=== PATIENT | female | born 1995 | race African-American/Black ===

== ENCOUNTER 2018-01-17 16:48 | Emergency (ER) | payer OTHER ==
[~2018-01-17] VITALS: Ht 162.6 cm; Wt 74.8 kg
[2018-01-17] MEDS ORDERED: KETOROLAC TROMETHAMINE 30 MG INJ ONE (17:36)
[2018-01-17] MEDS ORDERED: MORPHINE SULFATE 4 MG/1 ML DISP.SYRIN ONE (17:36)
[2018-01-17] MEDS ORDERED: ONDANSETRON 4 MG/2 ML VIAL ONE (17:36)
[2018-01-17] MEDS ORDERED: KETOROLAC TROMETHAMINE 30 MG INJ IVP ONE (17:45)
[2018-01-17] MEDS ORDERED: MORPHINE SULFATE 2 MG/1 ML DISP.SYRIN IV ONE (17:45)
[2018-01-17] MEDS ORDERED: ONDANSETRON 4 MG/2 ML VIAL IV ONE (17:45)
[2018-01-17] MEDS ORDERED: IV NORMAL SALINE 1000 ML BAG IV ONE (17:45)
[2018-01-17 17:54] LABS: CARBON DIOXIDE 22 mmol/L (21-32); CHLORIDE 101 mmol/L (98-107); GLUCOSE 99 mg/dL (74-106); POTASSIUM 3.3 mmol/L (3.5-5.1); UREA NITROGEN, BLOOD 4 mg/dL (7-18)
[2018-01-17 17:56] LABS: BASOPHILS % (AUTO) 0.3 % (0.0-2.0); EOSINOPHILS # (AUTO) 0.1 K/uL (0.0-0.7); EOSINOPHILS % (AUTO) 0.4 % (0.0-7.0); HEMATOCRIT 38.5 % (31.2-41.9); HEMOGLOBIN 12.9 g/dL (10.9-14.3); LYMPHOCYTES # (AUTO) 1.9 K/uL (20.0-40.0); LYMPHOCYTES % (AUTO) 15.4 % (20.5-74.5); MEAN CORPUSCULAR HEMOGLOBIN 28.1 uug (24.7-32.8); MEAN CORPUSCULAR HGB CONC 33 g/dL (32.3-35.6); MEAN CORPUSCULAR VOLUME 83.9 fL (75.5-95.3); MONOCYTES # (AUTO) 0.5 K/uL (2.0-10.0); MONOCYTES % (AUTO) 3.8 % (0-11); NEUTROPHILS # (AUTO) 10.1 K/uL (1.8-8.9); NEUTROPHILS % (AUTO) 80.1 % (31.5-64.5); PLATELET COUNT (AUTO) 381 K/uL (179-408); RED BLOOD CELL COUNT(AUTO) 4.58 MIL/uL (3.63-4.92); WHITE BLOOD COUNT (AUTO) 12.6 K/uL (3.8-11.8)
[2018-01-17 18:01] LABS: ALANINE AMINOTRANSFERASE 45 U/L (14-59); ALKALINE PHOSPHATASE 99 U/L (50-136); ASPARTATE AMINOTRANSFERASE 33 U/L (15-37); BILIRUBIN,DIRECT < 0.1 mg/dL (0.0-0.2); BILIRUBIN,TOTAL 0.3 mg/dL (0.2-1.0); LIPASE 85 U/L (73-393)
--- NOTE | 2018-01-17 20:22 | NUR ---
Pt provided urine sample, sent to lab. Pt out of ER for CT.
[2018-01-17 20:28] LABS: *BILIRUBIN,URIN NEGATIVE (NEGATIVE); *BLOOD, URINE 2+ (NEGATIVE); *COLOR,URINE YELLOW (YELLOW); *KETONES,URINE NEGATIVE (NEGATIVE); *PROTEIN,URINE NEGATIVE (NEGATIVE); *UROBILINOGEN,URINE 0.2 E.U./dl (NORMAL); LEUKOCYTE ESTERASE ,URINE NEGATIVE (NEGATIVE); NITRITE, URINE NEGATIVE (NEGATIVE); PH,URINE 8.5 (5.0-8.0); UGLUCOSE NEGATIVE (NEGATIVE)
[2018-01-17 20:30] LABS: *URINE HCG, QUAL NEGATIVE (NEGATIVE)
[2018-01-17 20:33] LABS: *CLARITY,URINE SLIGHTLY HAZY (CLEAR)
[2018-01-17 20:34] LABS: BACTERIA,URINE FEW /HPF (NONE SEEN); MUCUS,URINE MODERATE /LPF (0-FEW); SQUAMOUS EPITHELIAL CELL,UR MODERATE /HPF (NONE SEEN); WBC,URINE 0-3 /HPF (0-3)
--- NOTE | 2018-01-17 20:42 | NUR ---
Pt back to ER from CT.
--- NOTE | 2018-01-17 21:15 | NUR ---
Patient discharged to home in stable conditon. Written and verbal after care instructions given. Patient verbalizes understanding of instructions. Pt out of ER with steady gait, no acute signs of distress, VSS, all belongings taken, IV site discontinued.
[2018-01-17 21:23] VITALS: BP 140/90
== END 2018-01-17 21:25 | disposition home or self-care (01) ==
LOC: ER 16:50
DX: R10.32 Left lower quadrant pain (principal)
CPT/HCPCS: 36415; 74176; 76856; 80048; 80076; 81001; 83690; 84702; 84703; 85025; 96361; 96374; 96375; 99285; A4663; J1885; J2270; J2405; J7030